=== PATIENT | male | born 1965 ===

== ENCOUNTER 2020-10-09 14:54 | Emergency (ER) | payer MEDICAID, OTHER ==
[~2020-10-09] VITALS: Ht 170.2 cm; Wt 99.8 kg
[2020-10-09] MEDS ORDERED: SODIUM CHLORIDE 0.9% 1,000 ML IV ONE ×2 (15:30)
[2020-10-09] MEDS ORDERED: InsuLIN REG 1unit/0.01ml Soln (100units/ml) IV ONE (15:45)
[2020-10-09 16:27] LABS: Basophils # (auto) 0.2 10 ^3/uL (0-0.2); Basophils % (auto) 1.1 % (0.0-2.0); Eosinophils # (auto) 0.1 10 ^3/uL (0-0.8); Eosinophils % (auto) 0.7 % (0.0-7.0); Hematocrit 44.2 % (41.0-53.0); Lymphocytes # (auto) 1.4 10 ^3/uL (0.4-5.4); Lymphocytes % (auto) 9.7 % (10.0-50.0); Mean Corpuscular Hemoglobin 29.5 pg (28.0-32.0); Mean Corpuscular Hgb Conc. 33.9 g/dL (32.0-36.0); Mean Corpuscular Volume 86.8 fL (80.0-100.0); Monocytes # (auto) 0.9 10 ^3/uL (0-1.3); Monocytes % (auto) 6.1 % (0.0-12.0); Neutrophils # (auto) 12.2 10 ^3/uL (1.6-8.6); Neutrophils % (auto) 82.4 % (37.0-80.0); Nucleated Red Blood Cells % 0.1 %; Red Blood Cells 5.09 10^6/uL (4.5-5.90); Red Cell Distribution Width 13.5 % (11.8-14.3); White Blood Cell 14.8 10^3/uL (4.4-10.8)
[2020-10-09 16:59] LABS: Anion Gap 7 (5-15); Blood Urea Nitrogen 16 mg/dL (7-18); Calcium 8.4 mg/dL (8.5-10.1); Carbon Dioxide 27 mmol/L (21-32); Chloride 107 mmol/L (98-107); Glucose 364 mg/dL (74-106); Potassium 3.4 mmol/L (3.5-5.1); Sodium 141 mmol/L (136-145)
[2020-10-09 17:04] LABS: Alanine Aminotransferase 23 U/L (16-61); Alkaline Phosphatase 104 U/L (45-117); Aspartate Aminotransferase 8 U/L (15-37); BUN/Creatinine Ratio 8.1; Bilirubin, Total 0.4 mg/dL (0.2-1.0); GFR African American 45 mL/min; GFR Non-African American 37 mL/min; Total Protein 7.1 g/dL (6.4-8.2)
[2020-10-09] MEDS ORDERED: POTASSIUM EFFERVESENT TAB 25 MEQ PO ONE (17:30)
[2020-10-09 18:16] LABS: Urine Bacteria NONE SEEN /hpf (None Seen); Urine Blood Negative /uL (Negative); Urine Specific Gravity 1.006 (1.001-1.035); Urine WBC 1 /hpf (0 - 3)
[2020-10-09 18:52] VITALS: BP 137/68
== END 2020-10-09 18:51 | disposition home or self-care (01) ==
LOC: ER 14:54 → EDBD 14:54 → ER 18:51
DX: E11.65 Type 2 diabetes mellitus with hyperglycemia (principal); R55 Syncope and collapse; R42 Dizziness and giddiness; I10 Essential (primary) hypertension; E78.00 Pure hypercholesterolemia, unspecified; E78.5 Hyperlipidemia, unspecified
CPT/HCPCS: 36415; 70450; 71045; 80053; 81001; 84484; 85025; 93005; 96361; 96374